=== PATIENT | female | born 1955 | race Two or more races ===

== ENCOUNTER 2024-08-16 21:29 | Emergency (ER) | payer OTHER ==
[~2024-08-16] VITALS: Ht 154.9 cm; Wt 96.2 kg
--- NOTE | 2024-08-16 22:16 | ED.PDOC ---
History of Present Illness HPI Comments 69-year-old female came to ER for dizziness. Patient states she was driving home earlier, she started feeling dizzy with blurring of vision. Denies any headache, chest pains or shortness of breath. 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 Hx Family History Family History: Reviewed,noncontributory to illness Social History Smoker: Non-Smoker Alcohol: Denies ETOH Use Drugs: Denies Drug Use Lives In: Home Constitutional: denies: chills, diaphoresis, fatigue, fever, malaise, sweats, weakness, others EENTM: reports: blurred vision; denies: double vision, ear bleeding, ear discharge, ear drainage, ear pain, ear ringing, eye pain, eye redness, hearing loss, mouth pain, mouth swelling, nasal discharge, nose bleeding, nose congestion, nose pain, photophobia, tearing, throat pain, throat swelling, voice changes, others Respiratory: denies: cough, hemoptysis, orthopnea, SOB at rest, shortness of breath, SOB with excertion, stridor, wheezing, others Cardiovascular: denies: chest pain, dizzy spells, diaphoresis, Dyspnea on exertion, edema, irregular heart beat, left arm pain, lightheadedness, palpitations, PND, syncope, others Gastrointestinal: denies: abdomen distended, abdominal pain, blood streaked bowels, constipated, diarrhea, dysphagia, difficulty swallowing, hematemesis, melena, nausea, poor appetite, poor fluid intake, rectal bleeding, rectal pain, vomiting, others Genitourinary: denies: abnormal vagina bleeding, burning, dyspareunia, dysuria, flank pain, frequency, hematuria, incontinence, pain, , vagina discharge, urgency, others Neurological: reports: dizziness; denies: fainting, headache, left sided numbness, left sided weakness, numbness, paresthesia, pre-existing deficit, right sided numbness, right sided weakness, seizure, speech problems, tingling, tremors, weakness, others Musculoskeletal: denies: back pain, gout, joint pain, joint swelling, muscle pain, muscle stiffness, neck pain, others Integumetry: denies: bruises, change in color, change in hair/nails, dryness, laceration, lesions, lumps, rash, wounds, others Allergic/Immunocompromised: denies: Difficulty Healing, Frequent Infections, Hives, Itching, others Hematologic/Lymphatic: denies: anemia, blood clots, easy bleeding, easy bruising, swollen glands, others Endocrine: denies: excessive hunger, excessive sweating, excessive thirst, excessive urination, flushing, intolerance to cold, intolerance to heat, unexplained weight gain, unexplained weight loss, others Psychiatric: denies: anxiety, bipolar disorder, depression, hopeless, panic disorder, schizophrenia, sleepless, suicidal, others Physical Exam General Appearance: No Apparent Distress, Normal HEENT: Normal ENT Inspection, Pharynx Normal, TMs Normal Neck: Full Range of Motion, Non-Tender, Normal, Normal Inspection Respiratory: Chest Non-Tender, Lungs Clear, No Accessory Muscle Use, No Respiratory Distress, Normal Breath Sounds Cardiovascular: No Edema, No JVD, No Murmur, No Gallop, Normal Peripheral Pulses, Regular Rate/Rhythm Breast Exam: Deferred Gastrointestinal: No Organomegaly, Non Tender, No Pulsatile Mass, Normal Bowel Sounds, Soft Genitalia: Deferred Pelvic: Deferred Rectal: Deferred Extremities: No calf tenderness, Normal capillary refill, Normal inspection, Normal range of motion, Non-tender, No pedal edema Musculoskeletal : Apperance: Normal Neurologic: Alert, professional engineer II-XII nml as Tested, No Motor Deficits, Normal Affect, Normal Mood, No Sensory Deficits Cerebellar Function: Normal Reflexes: Normal Skin: Dry, Normal Color, Warm Lymphatic: No Adenopathy Was a procedure done? Was a procedure done?: No Differential Dx Considerations may include: Anemia. Electrolyte imbalance. Dehydration. Dizziness. Hypoglycemia. Vertigo X-Ray, Labs, Meds, VS Vital Signs Date Time Temp Pulse Resp B/P (MAP) Pulse Ox O2 Delivery O2 Flow Rate FiO2 08/17/24 00:16 89 08/16/24 23:45 98.1 89 13 136/53 (80) 99 98.1 08/16/24 23:45 89 13 99 Room Air* 0 21 08/16/24 22:05 98.0 90 17 138/84 (102) 99 98.0 08/16/24 21:35 97.9 86 16 163/75 (104) 98 97.9 Lab Test 08/16/24 23:20 08/16/24 22:20 08/16/24 22:10 Range/Units Troponin I High Sensitivity 51 *H 45 *H </=34 ng/L White Blood Count 7.5 4.4-10.8 10^3/uL Red Blood Count 4.79 4.0-5.20 10^6/uL Hemoglobin 13.7 12.2-16.2 g/dL Hematocrit 41.6 36.0-46.0 % Mean Corpuscular Volume 86.9 80.0-100.0 fL Mean Corpuscular Hemoglobin 28.6 28.0-32.0 pg Mean Corpuscular Hemoglobin Concent 32.9 32.0-36.0 g/dL Red Cell Distribution Width 13.8 11.8-14.3 % Platelet Count 161 140-450 10^3/uL Mean Platelet Volume 10.9 H 6.9-10.8 fL Neutrophils (%) (Auto) 62.9 37.0-80.0 % Lymphocytes (%) (Auto) 30.1 10.0-50.0 % Monocytes (%) (Auto) 5.6 0.0-12.0 % Eosinophils (%) (Auto) 1.0 0.0-7.0 % Basophils (%) (Auto) 0.4 0.0-2.0 % Neutrophils # (Auto) 4.7 1.6-8.6 10 ^3/uL Lymphocytes # (Auto) 2.3 0.4-5.4 10 ^3/uL Monocytes # (Auto) 0.4 0-1.3 10 ^3/uL Eosinophils # (Auto) 0.1 0-0.8 10 ^3/uL Basophils # (Auto) 0 0-0.2 10 ^3/uL Nucleated Red Blood Cells 0.0 % Sodium Level 142 136-145 mmol/L Potassium Level 4.3 3.5-5.1 mmol/L Chloride Level 106 98-107 mmol/L Carbon Dioxide Level 28 20-31 mmol/L Anion Gap 8 5-15 Blood Urea Nitrogen 28 H 9-23 mg/dL Creatinine 0.98 0.550-1.02 mg/dL Glomerular Filtration Rate Calc 62 >90 mL/min BUN/Creatinine Ratio 28.6 H 10.0-20.0 Serum Glucose 112 H 74-106 mg/dL Calcium Level 10.7 H 8.7-10.4 mg/dL Magnesium Level 2.2 1.6-2.6 mg/dL Total Bilirubin 0.3 0.2-1.0 mg/dL Aspartate Amino Transferase (AST) 34 13-40 U/L Alanine Aminotransferase (ALT) 45 H 7-40 U/L Alkaline Phosphatase 135 H 46-116 U/L Total Protein 7.7 5.7-8.2 g/dL Albumin 4.8 3.2-4.8 g/dL POC Glucose 98 70-106 mg/dl Time of 1ST Reevaluation: 22:13 Reevaluation 1ST: Unchanged Patient Education/Counseling: Diagnosis, Treatment Family Education/Counseling: No Family Present Departure 1 Departure Time of Disposition: 01:37 Impression: Primary Impression: Dizziness Additional Impressions: Near syncope Intermediate coronary syndrome Disposition: ADMITTED INPATIENT Admit to: Tele Condition: Guarded Comments Lightheadedness and Blurred Vision with Elevated Troponins Chief Complaint: Lightheadedness and blurred vision History of Present Illness: 69-year-old female with a history of hypertension presents with acute onset of lightheadedness and blurred vision. Symptoms began while patient was driving, at which point she appropriately pulled over and stopped. After resting, her symptoms showed gradual improvement, though she continues to experience mild lightheadedness. Notably, cardiac workup revealed elevated troponin levels, initially at 45 and subsequently rising to 51, raising concern for acute coronary syndrome. Review of Systems: Constitutional: Positive for lightheadedness Eyes: Positive for blurred vision Cardiovascular: See HPI All other systems reviewed and negative Lab Results: CBC: Within normal limits Troponin: Initial 45, repeated 51 (elevated and uptrending) BUN: 28 (elevated) Creatinine: 0.9 (normal) ALT: 45 Alkaline Phosphatase: 135 (slightly elevated) Imaging and Other Relevant Results: No imaging results documented Medical Decision Making: Summary Statement: 69-year-old female with hypertension presenting with lightheadedness, blurred vision, and rising troponins concerning for acute coronary syndrome. Problem List: 1. Suspected acute coronary syndrome 2. Near syncope 3. Hypertension Differential Diagnosis: 1. Non-ST elevation myocardial infarction 2. Unstable angina 3. Orthostatic hypotension 4. Vertebrobasilar insufficiency 5. Medication side effect ED Course: Patient received 162mg aspirin. Given presenting symptoms and uptrending troponins, decision made to admit for intermediate coronary syndrome workup. Assessment and Plan: 1. Intermediate Coronary Syndrome/Near Syncope: - Admit to hospital for further evaluation and management - Initiated on aspirin 162mg - Requires serial cardiac biomarkers and ECG monitoring - Cardiology consultation recommended 2. Hypertension: - Continue home medications - Monitor blood pressure during admission Billing Information: ICD-10: R55 - Near syncope ICD-10: I20.0 - Unstable angina ICD-10: I10 - Essential hypertension Critical Care Note Critical Care Time?: No Stability Stability form required: No Heart Score Heart Score: Heart Score Response (Comments) Value History Moderate Suspicious 1 EKG Repolarization Disturb 1 Age >65 2 Risk Factors 1 or 2 risk factors 1 Troponin 1-2 x's Normal limit 1 Total 6 I personally scribed for ARABELLA CHILDS MD ([email or web address]) on 08/16/24 at 22:16. Electronically submitted by Vel Ryan ([email or web address]). ARABELLA CHILDS MD August 16, 2024 22:16
[2024-08-16 22:34] LABS: Basophils # (auto) 0 10 ^3/uL (0-0.2); Basophils % (auto) 0.4 % (0.0-2.0); Eosinophils # (auto) 0.1 10 ^3/uL (0-0.8); Hematocrit 41.6 % (36.0-46.0); Hemoglobin 13.7 g/dL (12.2-16.2); Lymphocytes # (auto) 2.3 10 ^3/uL (0.4-5.4); Lymphocytes % (auto) 30.1 % (10.0-50.0); Mean Corpuscular Hemoglobin 28.6 pg (28.0-32.0); Mean Corpuscular Hgb Conc. 32.9 g/dL (32.0-36.0); Mean Corpuscular Volume 86.9 fL (80.0-100.0); Monocytes # (auto) 0.4 10 ^3/uL (0-1.3); Monocytes % (auto) 5.6 % (0.0-12.0); Neutrophils # (auto) 4.7 10 ^3/uL (1.6-8.6); Neutrophils % (auto) 62.9 % (37.0-80.0); Platelet Count (auto) 161 10^3/uL (140-450); Red Blood Cells 4.79 10^6/uL (4.0-5.20); Red Cell Distribution Width 13.8 % (11.8-14.3); White Blood Cell 7.5 10^3/uL (4.4-10.8)
[2024-08-16 22:46] LABS: Albumin 4.8 g/dL (3.2-4.8); Anion Gap 8 (5-15); Aspartate Aminotransferase 34 U/L (13-40); BUN/Creatinine Ratio 28.6 (10.0-20.0); Bilirubin, Total 0.3 mg/dL (0.2-1.0); Carbon Dioxide 28 mmol/L (20-31); Chloride 106 mmol/L (98-107); Magnesium 2.2 mg/dL (1.6-2.6); Potassium 4.3 mmol/L (3.5-5.1); Sodium 142 mmol/L (136-145); Total Protein 7.7 g/dL (5.7-8.2)
[2024-08-16 22:49] LABS: Alanine Aminotransferase 45 U/L (7-40); Alkaline Phosphatase 135 U/L (46-116); Blood Urea Nitrogen 28 mg/dL (9-23); Calcium 10.7 mg/dL (8.7-10.4); Glucose 112 mg/dL (74-106)
[2024-08-16 23:45] VITALS: PULSE 89; RESP 13; O2SAT 99
[2024-08-17] MEDS: ASPirin 81 mg TAB PO ONE (01:58)
--- NOTE | 2024-08-17 04:02 | DVH ---
EXAM: CT HEAD WITHOUT CONTRAST INDICATION: vertigo TECHNIQUE: CT of the head without intravenous contrast. Radiation Dose Information: CT Dose: CTDI volume is 53.6 mGy. Dose-length product is 948.9 mGy*cm The dose indicators for CT are the volume Computed Tomography (CT) Dose Index (CTDIvol) and the Dose Length Product (DLP), and are measured in units of mGy and mGy-cm, respectively. These indicators are not patient dose, but values generated from the CT scanner acquisition factors. The report includes radiation exposure data for exposures received during this examination. COMPARISON: None FINDINGS: There is no evidence of acute intracranial hemorrhage, extra-axial collection, mass effect, midline s hift, herniation or hydrocephalus. The ventricles, sulci and cisterns are age appropriate. The whitfield-white differentiation is intact. Patchy periventricular and subcortical white matter hypoattenuation is nonspecific but may be related to small vessel ischemic disease. The visualized paranasal sinuses and mastoid air cells are clear. The surrounding soft tissues and osseous structures are unremarkable. IMPRESSION: 1. No acute intracranial abnormality.
[2024-08-17 08:32] VITALS: PULSE 77; RESP 12; O2SAT 97
[2024-08-17 10:31] VITALS: BP 126/66; PULSE 82; RESP 15; TEMP 97.5; O2SAT 96
== END 2024-08-17 10:52 | disposition short-term general hospital (02) ==
LOC: ER 21:29
DX: H53.8 Other visual disturbances (principal); R55 Syncope and collapse; I20.0 Unstable angina; E78.5 Hyperlipidemia, unspecified
CPT/HCPCS: 36415; 70450; 80053; 82947; 82962; 83735; 84484; 85025